=== PATIENT | female | born 1965 | race Asian ===

== ENCOUNTER 2017-04-28 14:54 | Observation (INO) | payer OTHER ==
[~2017-04-28] VITALS: Ht 162.6 cm; Wt 50.5 kg
--- NOTE | 2017-04-28 15:18 | EMERGENCY ROOM VISIT NOTE ---
History Report prepared by Sherman: Evan Lombardo Under the Supervision of: Dr. Ryan Turk M.D. 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 She notes feeling tightness in her chest since last night and into the morning. She currently rates her pain a 5/10 in severity. She was referred to the ED from her PCP. She notes frequent diaphoresis at night regardless of her chest pain. She has been taking nitroglycerin for the chest pain, but notes there have been little improvements with her symptoms. She denies any current palpitations, diarrhea, dysuria, shortness of breath, leg pain or swelling. She notes that she infrequently gets leg cramps and takes a calcium supplement. She has a history of acid reflux, but notes this pain is unrelated. She denies a history of diabetes, blood clots, cardiac problems, or recent surgeries. She has a family history of CAD. 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 She notes infrequent leg cramps Review of Systems See HPI for pertinent positives and negatives. A total of ten systems were reviewed and were otherwise negative. Past Medical & Surgical Medical Problems: (1) Acid reflux (2) Chest pain Family History Colon cancer FHx: coronary artery disease Myocardial infarction Social History Smoking Status: Never Smoker Smokeless Tobacco Use: No Alcohol Use: none Drug Use: none Marital Status: Housing Status: lives with significant other Current/Historical Medications Scheduled Famotidine (Pepcid), 40 MG PO BID Lisinopril (Lisinopril), 20 MG PO DAILY Omeprazole (Prilosec), 20 MG PO DAILY Allergies Coded Allergies: No Known Allergies (Unverified , 04/28/17) Physical Exam Vital Signs Date Time Temp Pulse Resp B/P (MAP) Pulse Ox O2 Delivery O2 Flow Rate FiO2 04/28/17 17:00 77 18 139/94 97 Room Air 04/28/17 16:26 82 04/28/17 15:30 100 Room Air 04/28/17 15:26 100 Room Air 04/28/17 14:55 36.8 93 18 145/99 97 Room Air Physical Exam GENERAL: Awake, alert, well-appearing, in no distress HENT: Normocephalic, atraumatic. Oropharynx unremarkable. EYES: Normal conjunctiva. Sclera non-icteric. NECK: Supple. No nuchal rigidity. FROM. No JVD. RESPIRATORY: Clear to auscultation. CARDIAC: Regular rate, normal rhythm. Extremities warm and well perfused. Pulses equal. ABDOMEN: Soft, non-distended. No tenderness to palpation. No rebound or guarding. No masses. RECTAL: Deferred. MUSCULOSKELETAL: Chest examination reveals no tenderness. The back is symmetrical on inspection without obvious abnormality. There is no CVA tenderness to palpation. No joint edema. LOWER EXTREMITIES: Calves are equal size bilaterally and non-tender. No edema. No discoloration. NEURO: Normal sensorium. No sensory or motor deficits noted. SKIN: No rash or jaundice noted. Medical Decision & Procedures ER Provider Diagnostic Interpretation: Radiology results as stated below per my review and radiologist interpretation: SINGLE VIEW CHEST CLINICAL HISTORY: Atypical chest pain. FINDINGS: An AP, portable, upright chest radiograph is obtained. No prior studies are available for comparison at the time of dictation. The examination is degraded by portable technique and patient rotation. The cardiomediastinal silhouette is unremarkable. The lungs and pleural spaces are clear. No pneumothorax is seen. The bony thorax is grossly intact. IMPRESSION: No active disease in the chest. Electronically signed by: Man James M.D. 04/28/2017 3:36 PM Dictated Date/Time: 04/28/2017 3:36 PM Laboratory Results 04/28/17 15:29 Red Blood Count 4.31, Mean Corpuscular Volume 94.7, Mean Corpuscular Hemoglobin 32.5, Mean Corpuscular Hemoglobin Concent 34.3, Mean Platelet Volume 10.7, Neutrophils (%) (Auto) 68.2, Lymphocytes (%) (Auto) 25.0, Monocytes (%) (Auto) 3.9, Eosinophils (%) (Auto) 2.2, Basophils (%) (Auto) 0.5, Neutrophils # (Auto) 4.05, Lymphocytes # (Auto) 1.48, Monocytes # (Auto) 0.23, Eosinophils # (Auto) 0.13, Basophils # (Auto) 0.03 04/28/17 15:29 Test 04/28/17 15:29 White Blood Count 5.93 K/uL (4.8-10.8) Red Blood Count 4.31 M/uL (4.2-5.4) Hemoglobin 14.0 g/dL (12.0-16.0) Hematocrit 40.8 % (37-47) Mean Corpuscular Volume 94.7 fL (80-100) Mean Corpuscular Hemoglobin 32.5 pg (25-34) Mean Corpuscular Hemoglobin Concent 34.3 g/dl (32-36) Platelet Count 174 K/uL (130-400) Mean Platelet Volume 10.7 fL (7.4-10.4) Neutrophils (%) (Auto) 68.2 % Lymphocytes (%) (Auto) 25.0 % Monocytes (%) (Auto) 3.9 % Eosinophils (%) (Auto) 2.2 % Basophils (%) (Auto) 0.5 % Neutrophils # (Auto) 4.05 K/uL (1.4-6.5) Lymphocytes # (Auto) 1.48 K/uL (1.2-3.4) Monocytes # (Auto) 0.23 K/uL (0.11-0.59) Eosinophils # (Auto) 0.13 K/uL (0-0.5) Basophils # (Auto) 0.03 K/uL (0-0.2) RDW Standard Deviation 42.5 fL (36.4-46.3) RDW Coefficient of Variation 12.4 % (11.5-14.5) Immature Granulocyte % (Auto) 0.2 % Immature Granulocyte # (Auto) 0.01 K/uL (0.00-0.02) Anion Gap 5.0 mmol/L (3-11) Est Creatinine Clear Calc Drug Dose 58.5 ml/min Estimated GFR () 79.5 Estimated GFR (Non- 68.6 BUN/Creatinine Ratio 10.2 (10-20) Calcium Level 8.8 mg/dl (8.5-10.1) Magnesium Level 2.2 mg/dl (1.8-2.4) Total Bilirubin 0.4 mg/dl (0.2-1) Direct Bilirubin < 0.1 mg/dl (0-0.2) Aspartate Amino Transf (AST/SGOT) 13 U/L (15-37) Alanine Aminotransferase (ALT/SGPT) 20 U/L (12-78) Alkaline Phosphatase 94 U/L (45-117) Troponin I < 0.015 ng/ml (0-0.045) Total Protein 7.4 gm/dl (6.4-8.2) Albumin 4.0 gm/dl (3.4-5.0) Lipase 172 U/L (73-393) Laboratory results reviewed by me ECG Indication: chest pain Rate (beats per minute): 84 Rhythm: normal sinus Findings: other (Normal intervals, T wave inversion in L2) Change: Repeat ECG: Normal sinus rhythm, 72 Findings: Normal axis, No acute ischemic changes. ED Course 1503: The patient was evaluated in room C3. A complete history and physical exam was performed. 1648: I spoke with Dr. Sullivan. We discussed the patients case. The patient will be evaluated by the [facility] for further management. Medical Decision I reviewed the patient's past medical history, medications, and the nursing notes as described above. Differential diagnoses: ACS, angina, PNA, bronchitis, arrhythmia, gastritis, peptic ulcer, and anxiety. The patient is a 51-year-old woman who presents to emergency department with episodes of intermittent chest pain that occur at night and resolved with nitroglycerin per history of present illness. On arrival the patient is asymptomatic, well-appearing, in no acute distress. EKG with T-wave inversion in V2 but otherwise no signs of acute ischemia. Trop negative. CXR negative. She does have a family member who has had cardiac disease in his early 60s. Thus , patients heart score would be 4, moderate risk. Admission for provocative testing is reasonable. Patient agreeable for admission. Case d/w [facility] hospitalist who will admit the patient for further ACS and likely stress test tomorrow. Blood Pressure Screening Patient's blood pressure: Elevated blood pressure refer to hospitalist Consults Time Called: 1644 Consulting Physician: Dr Sullivan, hospitalist Returned Call: [address] Sullivan. We discussed the patients case. The patient will be evaluated by the [facility] for further management. Impression Primary Impression: Substernal precordial chest pain Scribe Attestation The scribe's documentation has been prepared under my direction and personally reviewed by me in its entirety. I confirm that the note above accurately reflects all work, treatment, procedures, and medical decision making performed by me. Departure Information Dispostion Being Evaluated By Hospitalist Chris Mishra M.D. (PCP) Patient Instructions [facility]
--- NOTE | 2017-04-28 15:37 | DIAGNOSTIC IMAGING REPORT ---
SINGLE VIEW CHEST CLINICAL HISTORY: Atypical chest pain. FINDINGS: An AP, portable, upright chest radiograph is obtained. No prior studies are available for comparison at the time of dictation. The examination is degraded by portable technique and patient rotation. The cardiomediastinal silhouette is unremarkable. The lungs and pleural spaces are clear. No pneumothorax is seen. The bony thorax is grossly intact. IMPRESSION: No active disease in the chest. Electronically signed by: Man James M.D. 04/28/2017 3:36 PM Dictated Date/Time: 04/28/2017 3:36 PM
[2017-04-28 15:43] LABS: BASO % 0.5 %; BASO ABS # 0.03 K/uL (0-0.2); COMPLETE YES; EOS % 2.2 %; HEMATOCRIT 40.8 % (37-47); IG% 0.2 %; LYMPH ABS # 1.48 K/uL (1.2-3.4); MEAN CELL VOLUME 94.7 fL (80-100); MEAN CORPUSCULAR HEMOGLOBIN 32.5 pg (25-34); MEAN CORPUSCULAR HGB CONC 34.3 g/dl (32-36); MEAN PLATELET VOLUME 10.7 fL (7.4-10.4); MONO % 3.9 %; NEUT % 68.2 %; PLATELET COUNT 174 K/uL (130-400); RED BLOOD COUNT 4.31 M/uL (4.2-5.4); WHITE BLOOD COUNT 5.93 K/uL (4.8-10.8)
[2017-04-28 16:04] LABS: ALT/SGPT 20 U/L (12-78); AST/SGOT 13 U/L (15-37); BLOOD UREA NITROGEN 10 mg/dl (7-18); BUN/CREATININE RATIO 10.2 (10-20); CALCIUM 8.8 mg/dl (8.5-10.1); CARBON DIOXIDE 27 mmol/L (21-32); CHLORIDE 105 mmol/L (98-107); CREATININE 0.97 mg/dl (0.60-1.20); GLUCOSE 164 mg/dl (70-99); MAGNESIUM 2.2 mg/dl (1.8-2.4); POTASSIUM 3.6 mmol/L (3.5-5.1); SODIUM 137 mmol/L (136-145)
[2017-04-28 16:09] LABS: ALKALINE PHOSPHATASE 94 U/L (45-117)
[2017-04-28] MEDS ORDERED: MAGNESIUM HYDROXIDE SUSP 30 ML UDC PO PRN (17:30)
[2017-04-28] MEDS ORDERED: POLYETHYLENE (MIRALAX) 17 GM PACK PO PRN (17:30)
[2017-04-28] MEDS ORDERED: ONDANSETRON INJ 2 MG/ML 2 ML VIAL IV PRN (17:30)
[2017-04-28] MEDS ORDERED: ACETAMINOPHEN 325 MG TAB PO PRN (17:30)
[2017-04-28] MEDS ORDERED: ALUMINUM/MAGNESIUM/SIMETH (MAALOX MAX) 30 ML UDC PO PRN (17:30)
[2017-04-28] MEDS ORDERED: LSN20 PO (17:39)
[2017-04-28] MEDS ORDERED: FAMO40TA6 PO (17:46)
[2017-04-28] MEDS ORDERED: OMEP40CA41 PO (17:46)
--- NOTE | 2017-04-28 17:56 | History and Physical ---
History & Physical Date & Time of Service: Apr 28, 2017 at 17:43 Chief Complaint: Chest Pain Primary Care Physician: Chris Lewis M.D. History of Present Illness Source: patient, hospital records This is a 51 y/o female with a history of HTN and GERD who presented to the ED on 04/28 with intermittent chest pain x 2 weeks. The patient states that she has had a lot of stress with her family recently, and in the last 2 weeks she has had an intermittent chest tightness and retrosternal aching pain that typically occurs at nighttime. The pain occurred again last night and this morning her chest tightness persisted. She went to see her PCP who recommended she be evaluated in the ED. She describes her discomfort as a 4/10 aching pain. She was previously prescribed nitroglycerin which does help alleviate the pain. She denies any associated symptoms and denies any radiation of the pain. She was recently diagnosed with HTN and was to start lisinopril today, but she did not get to fill the prescription as she came to the ED instead. Currently, she states that all of her chest pain and tightness are gone. The patient denies fevers, chills, sweats, palpitations, claudication, cough, wheezing, shortness of breath, nausea, vomiting, abdominal pain, dysuria, hematuria, urinary retention, paralysis, weakness, numbness and tingling. Past Medical/Surgical History HTN GERD Family History Colon cancer Myocardial infarction Social History Smoking Status: Never Smoker Smokeless Tobacco Use: No Alcohol Use: none Drug Use: none Marital Status: Housing status: lives with significant other Occupational Status: unemployed Allergies Coded Allergies: No Known Allergies (Unverified , 04/28/17) Home Medications Scheduled Famotidine (Pepcid), 40 MG PO BID Lisinopril (Lisinopril), 20 MG PO DAILY Omeprazole (Prilosec), 20 MG PO DAILY Review of Systems Constitutional: No fever, No chills, No sweats Eyes: No worsening of vision, No eye pain, No diplopia ENT: No hearing loss, No nasal symptoms, No trouble swallowing Respiratory: No cough, No wheezing, No shortness of breath Cardiovascular: +Intermittent chest pain and tightness. No claudication, No palpitations Abdomen: No pain, No nausea, No vomiting Musculoskeletal: No joint pain, No muscle pain, No swelling Genitourinary - Female: No dysuria, No urinary retention, No hematuria Neurologic: No paralysis, No weakness, No numbness/tingling Integumentary: No rash, No itch, No color change Physical Exam Vital Signs Date Time Temp Pulse Resp B/P (MAP) Pulse Ox O2 Delivery O2 Flow Rate FiO2 04/28/17 17:00 77 18 139/94 97 Room Air 04/28/17 16:26 82 04/28/17 15:30 100 Room Air 04/28/17 15:26 100 Room Air 04/28/17 14:55 36.8 93 18 145/99 97 Room Air General appearance: Well-developed, well-nourished, no apparent distress Head: Normocephalic, atraumatic Eyes: Normal inspection, PERRL, EOMI ENT: Normal ENT inspection, hearing grossly normal, pharynx normal Neck: Supple, no JVD, trachea midline Respiratory/Chest: Lungs clear to auscultation, normal breath sounds, no respiratory distress Cardiovascular: Regular rate & rhythm, no gallop, no murmur Abdomen/GI: Normal bowel sounds, non-tender, soft Extremities/Musculoskeletal: Normal inspection, no calf tenderness, no pedal edema Neurological/Psych: Alert, normal mood/affect, oriented x 3 Skin: Normal color, warm/dry, no rash Diagnostics Laboratory Results Results Past 24 Hours Test 04/28/17 15:29 Range/Units White Blood Count 5.93 4.8-10.8 K/uL Red Blood Count 4.31 4.2-5.4 M/uL Hemoglobin 14.0 12.0-16.0 g/dL Hematocrit 40.8 37-47 % Mean Corpuscular Volume 94.7 80-100 fL Mean Corpuscular Hemoglobin 32.5 25-34 pg Mean Corpuscular Hemoglobin Concent 34.3 32-36 g/dl Platelet Count 174 130-400 K/uL Mean Platelet Volume 10.7 7.4-10.4 fL Neutrophils (%) (Auto) 68.2 % Lymphocytes (%) (Auto) 25.0 % Monocytes (%) (Auto) 3.9 % Eosinophils (%) (Auto) 2.2 % Basophils (%) (Auto) 0.5 % Neutrophils # (Auto) 4.05 1.4-6.5 K/uL Lymphocytes # (Auto) 1.48 1.2-3.4 K/uL Monocytes # (Auto) 0.23 0.11-0.59 K/uL Eosinophils # (Auto) 0.13 0-0.5 K/uL Basophils # (Auto) 0.03 0-0.2 K/uL RDW Standard Deviation 42.5 36.4-46.3 fL RDW Coefficient of Variation 12.4 11.5-14.5 % Immature Granulocyte % (Auto) 0.2 % Immature Granulocyte # (Auto) 0.01 0.00-0.02 K/uL Sodium Level 137 136-145 mmol/L Potassium Level 3.6 3.5-5.1 mmol/L Chloride Level 105 98-107 mmol/L Carbon Dioxide Level 27 21-32 mmol/L Anion Gap 5.0 3-11 mmol/L Blood Urea Nitrogen 10 7-18 mg/dl Creatinine 0.97 0.60-1.20 mg/dl Est Creatinine Clear Calc Drug Dose 58.5 ml/min Estimated GFR () 79.5 Estimated GFR (Non- 68.6 BUN/Creatinine Ratio 10.2 10-20 Random Glucose 164 70-99 mg/dl Calcium Level 8.8 8.5-10.1 mg/dl Magnesium Level 2.2 1.8-2.4 mg/dl Total Bilirubin 0.4 0.2-1 mg/dl Direct Bilirubin < 0.1 0-0.2 mg/dl Aspartate Amino Transf (AST/SGOT) 13 15-37 U/L Alanine Aminotransferase (ALT/SGPT) 20 12-78 U/L Alkaline Phosphatase 94 45-117 U/L Troponin I < 0.015 0-0.045 ng/ml Total Protein 7.4 6.4-8.2 gm/dl Albumin 4.0 3.4-5.0 gm/dl Lipase 172 73-393 U/L Diagnostic Radiology Reviewed the following studies and agree with interpretation as follows: SINGLE VIEW CHEST CLINICAL HISTORY: Atypical chest pain. FINDINGS: An AP, portable, upright chest radiograph is obtained. No prior studies are available for comparison at the time of dictation. The examination is degraded by portable technique and patient rotation. The cardiomediastinal silhouette is unremarkable. The lungs and pleural spaces are clear. No pneumothorax is seen. The bony thorax is grossly intact. IMPRESSION: No active disease in the chest. EKG Reviewed EKG and agree with interpretation as follows: 73 bpm, NSR Impression Assessment and Plan 51 y/o female with a history of HTN and GERD who presented to the ED on 04/28 with intermittent chest pain x 2 weeks. Pt arrived afebrile, VSS. EKG did not show any acute ischemic changes. CXR no acute disease. Troponin negative. BSG 164. Labs otherwise grossly unremarkable. Chest pain, ACS r/o -Admit to telemetry for observation -Trend cardiac enzymes q8h x 3. First troponin negative. -Stress echo in am if negative -NPO after midnight -EKG q am and prn chest pain -Check fasting lipid panel -Elevated BSG, will check HgbA1c HTN--new diagnosis, was prescribed lisinopril today but has not taken yet -Continue lisinopril 20 mg PO qd GERD -Continue Pepcid. Convert Prilosec to Protonix GI prophylaxis -Maalox Max 15 mL PO q4h prn dyspepsia -Milk of magnesia 30 mL PO q6h prn constipation -Miralax 17 gm PO qd prn constipation -Zofran 4 mg IV q6h prn nausea DVT prophylaxis -Enoxaparin 40 mg SC q24h -JOSE MARIA restrepo and [place] Code Status -Level I, FULL RESUSCITATION STATUS Level of Care Telemetry Resuscitation Status FULL RESUSCITATION VTE Prophylaxis VTE Risk Assessment Done? Y/N: Yes Risk Level: Moderate Given or contraindicated: Enoxaparin (Lovenox)SQ, T.E.D. Stockings, SCD's Reviewed: Pt Seen/Exam by Me History Physician Curriculum Counselor Supervision Note: I interviewed and examined the patient. Discussed with LINSEY Junior and agree with findings and plan as documented in the note. Any exceptions or clarifications are listed here: Pt reports several episodes of chest tightness and pain over the last 2-3 weeks. Pain is substernal, nonradiating, comes on at rest, mostly at nighttime, will last until she takes a SLNTG ( is MD and prescribed for her). She then sometimes gets a chest tightness afterwards that will last a few hours. No associated symptoms. BPs have been elevated lately. Currently undergoing some personal stressors. No previous cardiac history. Had some more heartburn type symptoms a few weeks back that resolved with taking PPI and H2 syed. This pain is different from that sensation of GERD. No hematemesis, no hematochezia or melena, no abd pain. Has had low appetite and lost 7 lbs due to stress in the last few weeks. Vitals reviewed\NAD, very pleasant, AAOx3 Thin Anicteric sclerae RRR no mgr, no TTP over chest CTAB no wcr Abd +BS soft NT ND Ext no edema, 2+ DP pulses Skin no rashes ECG normal CXR normal and personally reviewed by me Labs normal 51 yo female with h/o GERD, here with atypical CP. If troponins neg x 3, will perform Stress ECHO. If stress negative, suggest could be GI-related due to GERD or esophageal spasm given it is relieved with NTG. Would suggest outpt GI referral at that point. Documented By: Elaina Olea
[2017-04-28 19:22] VITALS: BP 140/91; PULSE 64; TEMP 36.9; O2SAT 98; Ht 162.6 cm; Wt 50.5 kg
[2017-04-28 20:10] LABS: PROTHROMBIN TIME (PATIENT) 10.6 SECONDS (9.0-12.0)
[2017-04-28] MEDS ORDERED: ZOLPIDEM TARTRATE 5 MG TAB PO PRN (20:15)
[2017-04-28] MEDS ORDERED: ENOXAPARIN 40 MG/0.4 ML SYR SC SCH (21:00)
[2017-04-28] MEDS: FAMOTIDINE 20 MG TAB PO SCH (21:00)
[2017-04-28] MEDS ORDERED: INFLUENZA ADMINISTRATION CHARGE ONE (22:00)
[2017-04-28] MEDS ORDERED: INFLUENZA VIRUS QUAD VACCINE 0.5 ML SYR IM. ONE (22:00)
[2017-04-28] MEDS ORDERED: IV FLUIDS COMPLETED PRN (22:15)
[2017-04-29 00:31] VITALS: BP 115/77; PULSE 66; TEMP 37.1; O2SAT 97
[2017-04-29 03:05] VITALS: BP 132/82; PULSE 60; TEMP 36.5; O2SAT 100
[2017-04-29 07:12] LABS: HEMATOCRIT 41.8 % (37-47); MEAN CORPUSCULAR HEMOGLOBIN 33.6 pg (25-34); MEAN CORPUSCULAR HGB CONC 35.4 g/dl (32-36); MEAN PLATELET VOLUME 10.6 fL (7.4-10.4); PLATELET COUNT 168 K/uL (130-400); WHITE BLOOD COUNT 5.24 K/uL (4.8-10.8)
[2017-04-29 07:31] LABS: BUN/CREATININE RATIO 26.6 (10-20); CALCIUM 8.8 mg/dl (8.5-10.1); CARBON DIOXIDE 25 mmol/L (21-32); CHLORIDE 107 mmol/L (98-107); GLUCOSE 97 mg/dl (70-99); POTASSIUM 3.6 mmol/L (3.5-5.1); SODIUM 138 mmol/L (136-145)
[2017-04-29 07:34] LABS: BLOOD UREA NITROGEN 16 mg/dl (7-18)
[2017-04-29 07:35] LABS: CHOLESTEROL 175 mg/dl (0-200); CHOLESTEROL/HDL RATIO 2.7; CKMB/CK RATIO 0.5 (0-3.0); HDL CHOLESTEROL 65 mg/dl; LDL CHOLESTEROL CALCULATED 94 mg/dl; TRIGLYCERIDES 82 mg/dl (0-150); VERY LOW DENSITY LIPOPROT CALC 16 mg/dl
[2017-04-29 08:05] VITALS: BP 133/85; PULSE 72; TEMP 36.8; O2SAT 96
[2017-04-29] MEDS: FAMOTIDINE 20 MG TAB PO SCH (08:15)
[2017-04-29 08:35] LABS: ESTIMATED AVERAGE GLUCOSE 108 mg/dl; HA1C FLAG Normal (Normal)
[2017-04-29] MEDS ORDERED: PANTOprazole SOD 40 MG TAB PO SCH (09:00)
[2017-04-29] MEDS ORDERED: LISINOPRIL 10 MG TAB PO SCH (09:00)
[2017-04-29] MEDS ORDERED: LISINOPRIL 20 MG TAB PO SCH (09:00)
[2017-04-29] MEDS ORDERED: LSN10 PO (11:23)
[2017-04-29] MEDS ORDERED: LISI-461 PO (11:24)
--- NOTE | 2017-04-29 11:54 | Discharge Summary ---
Discharge Summary Date of Service Apr 29, 2017. Discharge Summary Admission Date: Apr 28, 2017 at 17:42 Discharge Date: Apr 29, 2017 Discharge Disposition: Home Principal Diagnosis: Chest pain Problems/Secondary Diagnoses: HTN GERD Procedures: SINGLE VIEW CHEST CLINICAL HISTORY: Atypical chest pain. FINDINGS: An AP, portable, upright chest radiograph is obtained. No prior studies are available for comparison at the time of dictation. The examination is degraded by portable technique and patient rotation. The cardiomediastinal silhouette is unremarkable. The lungs and pleural spaces are clear. No pneumothorax is seen. The bony thorax is grossly intact. IMPRESSION: No active disease in the chest. Electronically signed by: Man James M.D. 04/28/2017 3:36 PM Dictated Date/Time: 04/28/2017 3:36 PM The status of this report is Signed. Draft = Not yet reviewed or approved by Radiologist. Signed = Reviewed and approved by Radiologist. Stress ECHO Medication Reconciliation Changed Medications: Lisinopril (Lisinopril) 10 Mg Tab 10 MG PO DAILY for 30 Days, #30 TAB (Changed from: Lisinopril 20 Mg Tab 20 Mg PO DAILY) Continued Medications: Famotidine (Pepcid) 40 Mg Tab 40 MG PO BID, TAB Omeprazole (Prilosec) 40 Mg Cap 20 MG PO DAILY, CAP Discharge Exam Review of Systems: Constitutional: No fever, No chills, No sweats, No weakness, No fatigue Respiratory: No cough, No shortness of breath, No hemoptysis Cardiovascular: No chest pain, No edema, No palpitations Abdomen: No pain, No nausea, No vomiting, No diarrhea, No constipation Musculoskeletal: No joint pain, No muscle pain, No swelling, No calf pain Genitourinary - Female: No dysuria, No hematuria Neurologic: No weakness, No numbness/tingling Psychiatric: No depression symptoms, No anxiety Endocrine: No fatigue Hematologic / Lymphatic: No abnormal bleeding/bruising, No swollen lymph nodes Integumentary: No rash, No itch, No new/changing skin lesions Physical Exam: General Appearance: no apparent distress Eyes: normal inspection, PERRL ENT: hearing grossly normal Neck: supple Respiratory/Chest: lungs clear, no respiratory distress, no accessory muscle use Cardiovascular: regular rate, rhythm Abdomen / GI: normal bowel sounds, non tender, soft Extremities: no calf tenderness, no pedal edema Neurologic/Psychiatric: alert, normal mood/affect, oriented x 3 Skin: normal color, warm/dry, no rash Hospital Course Admission H&P: This is a 51 y/o female with a history of HTN and GERD who presented to the ED on 04/28 with intermittent chest pain x 2 weeks. The patient states that she has had a lot of stress with her family recently, and in the last 2 weeks she has had an intermittent chest tightness and retrosternal aching pain that typically occurs at nighttime. The pain occurred again last night and this morning her chest tightness persisted. She went to see her PCP who recommended she be evaluated in the ED. She describes her discomfort as a 4/10 aching pain. She was previously prescribed nitroglycerin which does help alleviate the pain. She denies any associated symptoms and denies any radiation of the pain. She was recently diagnosed with HTN and was to start lisinopril today, but she did not get to fill the prescription as she came to the ED instead. Currently, she states that all of her chest pain and tightness are gone. The patient denies fevers, chills, sweats, palpitations, claudication, cough, wheezing, shortness of breath, nausea, vomiting, abdominal pain, dysuria, hematuria, urinary retention, paralysis, weakness, numbness and tingling. Physical Exam Vital Signs Date Time Temp Pulse Resp B/P (MAP) Pulse Ox O2 Delivery O2 Flow Rate FiO2 04/28/17 17:00 77 18 139/94 97 Room Air 04/28/17 16:26 82 04/28/17 15:30 100 Room Air 04/28/17 15:26 100 Room Air 04/28/17 14:55 36.8 93 18 145/99 97 Room Air General appearance: Well-developed, well-nourished, no apparent distress Head: Normocephalic, atraumatic Eyes: Normal inspection, PERRL, EOMI ENT: Normal ENT inspection, hearing grossly normal, pharynx normal Neck: Supple, no JVD, trachea midline Respiratory/Chest: Lungs clear to auscultation, normal breath sounds, no respiratory distress Cardiovascular: Regular rate & rhythm, no gallop, no murmur Abdomen/GI: Normal bowel sounds, non-tender, soft Extremities/Musculoskeletal: Normal inspection, no calf tenderness, no pedal edema Neurological/Psych: Alert, normal mood/affect, oriented x 3 Skin: Normal color, warm/dry, no rash Hospital Course: 51 y/o female with a history of HTN and GERD who presented to the ED on 04/28 with intermittent chest pain x 2 weeks. Pt arrived afebrile, VSS. EKG did not show any acute ischemic changes. CXR no acute disease. Troponin negative. BSG 164. Labs otherwise grossly unremarkable. Chest pain, ACS r/o: - Admit to telemetry for cardiac monitoring- no acute events - Trended cardiac enzymes- negative - EKG w/out acute ischemic changes - Stress ECHO- unremarkable for ischemic changes - Lipid panel and HgbA1C- WNL - Recommend outpatient f/u w/ PCP for continued workup and possible GI referral HTN: Lisinopril 10 mg PO qd GERD: Continue Pepcid and Prilosec DVT prophylaxis: Enoxaparin 40 mg SC q24h Code Status: Level I, FULL RESUSCITATION STATUS Dispo: Discharge to home Total Time Spent: Greater than 30 minutes This includes examination of the patient, discharge planning, medication reconciliation, and communication with other providers. Discharge Instructions Please refer to the electronic Patient Visit Report (Discharge Instructions) for additional information. Follow-Up Please follow-up with your PCP within 5-7 days Please follow-up/keep all of your subspecialty appointments Additional Copies To Chris Lewis M.D. Reviewed: Pt Seen/Exam by Me History Physician Respiratory Therapy Aide Supervision Note: I interviewed and examined the patient. Discussed with LINSEY Garcia and agree with findings and plan as documented in the note. Any exceptions or clarifications are listed here: Pt reports several episodes of chest tightness and pain over the last 2-3 weeks. Pain is substernal, nonradiating, comes on at rest, mostly at nighttime, will last until she takes a SLNTG ( is MD and prescribed for her). She then sometimes gets a chest tightness afterwards that will last a few hours. No associated symptoms. BPs have been elevated lately. Currently undergoing some personal stressors. No previous cardiac history. Had some more heartburn type symptoms a few weeks back that resolved with taking PPI and H2 syed. This pain is different from that sensation of GERD. No hematemesis, no hematochezia or melena, no abd pain. Has had low appetite and lost 7 lbs due to stress in the last few weeks. Pt doing very well on day of discharge; no recurrence of chest pain or tightness since admission. Had normal Stress ECHO today. Feeling good and ready to get out of here. No events on tele. Troponins neg x 3 Vitals reviewed NAD, thin, pleasant, AAOx3 RRR no mgr CTAB no wcr Ext no edema 51 yo female with h/o GERD, here with atypical CP. Stress ECHO negative for ischemia-> suggest could be GI-related due to GERD or esophageal spasm given it is relieved with NTG. Would suggest outpt GI referral after discharge today -continue lisinopril at 10mg daily f/u PCP within 1 week Documented By: Elaina Olea
--- NOTE | 2017-04-29 11:55 | Discharge Instructions ---
Discharge Instructions Date of Service Apr 29, 2017. Admission Reason for Admission: Chest Pain Discharge Discharge Diagnosis / Problem: Chest pain likely related to GERD Discharge Goals Goal(s): Decrease discomfort, Learn about illness, Diagnostic testing, Therapeutic intervention, Prevent Disease Progression Activity Recommendations Activity Limitations: resume your previous activity . Instructions / Follow-Up Instructions / Follow-Up An acute cardiac event was ruled-out through cardiac monitoring, cardiac enzymes , and a stress test. It is recommended you follow-up with your PCP for continued workup. A GI consultation may be warranted in the future for further workup- this can be discussed with your PCP. Blood pressure medication: Lisinopril 10 mg daily GERD: Continue Prilosec and Pepcid FOLLOW-UPS: Please follow-up with your PCP within 5-7 days Please follow-up/keep all of your subspecialty appointments Home Care: * If you are having chest pain, call 911 for an ambulance. Do NOT drive yourself to the hospital. * Ask your family members to learn CPR. * Learn to take your own blood pressure and pulse. Keep a record of your results. Ask your doctor when you should seek emergency medical attention. He or she will tell you which blood pressure reading is dangerous. Lifestyle Changes: * Maintain a healthy weight. Get help to lose any extra pounds. * Cut back on salt. * Limit canned, dried, packaged, and fast foods. * Don't add salt to your food. * Season foods with herbs instead of salt when you cook. * Break the smoking habit. Enroll in a stop-smoking program to improve your chances of success. * Limit fatty foods. * Ask your doctor about having your lipid levels checked regularly. * Build up your activity according to your doctor's recommendation. * Ask your doctor when it's okay to resume sexual activity. * Try to manage stress. Follow Up: It is important for you to keep your follow up appointments with your medical provider. Current Hospital Diet Patient's current hospital diet: AHA Diet (Heart Healthy) Discharge Diet Recommended Diet: AHA Diet (Heart Healthy) Pending Studies Studies pending at discharge: no Laboratory Results Hemoglobin A1c Test 04/29/17 06:59 Range/Units Estimated Average Glucose 108 mg/dl Hemoglobin A1c 5.4 4.5-5.6 % Lipid Panel Test 04/29/17 06:59 Range/Units Triglycerides Level 82 0-150 mg/dl Cholesterol Level 175 0-200 mg/dl HDL Cholesterol 65 mg/dl Cholesterol/HDL Ratio 2.7 LDL Cholesterol, Calculated 94 mg/dl Medical Emergencies . Who to Call and When: Medical Emergencies: If at any time you feel your situation is an emergency, please call 911 immediately. Call 911 immediately or go to your nearest Emergency Room if you experience any of the following: Warning Signs and Symptoms of a Heart Attack * Chest pain that is not relieved by medication * Shortness of breath . Non-Emergent Contact Non-Emergency issues call your: Primary Care Provider Call Non-Emergent contact if: your pain is not controlled, your pain is worsening, your pain is unusual for you, your pain is concerning you, you have any medication questions . . "Provider Documentation" section prepared by Debbie Garcia. . AMI Core Measures Reason no ASA as I/P: Treatment not indicated Reason no ASA at D/C: Treatment not indicated Reason no statin as I/P: Treatment not indicated Reason no statin at D/C: Treatment not indicated VTE Core Measure Inpt VTE Proph given/why not?: Enoxaparin (Lovenox)SQ, T.E.D. Stockings, SCD's
[2017-04-29 12:09] VITALS: BP 133/85; PULSE 72; TEMP 36.8; O2SAT 96
--- NOTE | 2017-04-29 15:17 | EXERCISE STRESS ECHO ---
*NOTICE TO RECEIVING [employer] This information is strictly Confidential and protected under [place] law. [place] law prohibits you from making any further disclosure of this information unless further disclosure is expressly permitted by the written consent of the person to whom it pertains or is authorized by law. A general authorization for the release of medical or other information is not sufficient for this purpose. Hospital accepts no responsibility if the information is made available to any other person, INCLUDING THE PATIENT. Interpretation Summary * Name: MELECIO ZHONG Study Date: 04/29/2017 08:57 AM BP: 110/76 mmHg * Patient Location: C.2E\S\E201\S\1 HR: 61 * : 1965 (M/d/yyyy) Gender: Female Height: 64 in * Age: 51 yrs Ethnicity: Weight: 116 lb * Ordering Physician: Yarely Perkins * Referring Physician: Chris Lewis * Performed By: Thelma Gonzalez RCS * * Reason For Study: CHEST PAIN * BSA: 1.6 m2 * -- Conclusions -- * Stress Echo: * 1. Negative stress echo for ischemia at 100 % MPHR. * 2. Negative exercise ECG for ischemia at 100 % MPHR. * 3. Appropriate blood pressure response to exercise. * 4. No arrhythmia. * 5. Study terminated due to fatigue. No chest pain reported. * 6. Good exercise tolerance. * Echo: * 1. Normal left ventricular size and systolic function. EF 60-65%. No regional wall motion abnormalities. No left ventricular hypertrophy. No significant diastolic dysfunction. * 2. No significant valvular abnormalities. Procedure Details * ECHOEX, CPT #[id number] * ECHO COLOR FLOW, CPT #[id number] * ECHO DOPPLER, CPT #[id number] Left Ventricle * The left ventricle is normal in size. * There is normal left ventricular wall thickness. * Left ventricular systolic function is normal. * The left ventricular ejection fraction increases normally with stress. The left ventricular end-systolic cavity size reduces post-stress (normal response). The left ventricular wall motion with stress is normal. * Resting wall motion: Normal. Stress wall motion: Appropriate increase in Left ventricular systolic function and decrease in cavity size. No stress induced segmental wall motion abnormalities. * No regional wall motion abnormalities noted. Right Ventricle * The right ventricle is normal in size and function. Atria * The left atrial size is normal. * Right atrial size is normal. * There is no evidence of atrial septal defect, but resolution does not allow assessment for a patent foramen ovale. Mitral Valve * The mitral valve leaflets appear normal. There is no evidence of stenosis, fluttering, or prolapse. * There is no mitral regurgitation noted. Tricuspid Valve * The tricuspid valve is not well visualized, but is grossly normal. * There is no tricuspid stenosis. * Significant tricuspid regurgitation is absent. Aortic Valve * The aortic valve opens well. * No hemodynamically significant valvular aortic stenosis. * No aortic regurgitation is present. Pulmonic Valve * The pulmonary valve is inadequately visualized, but the Doppler data is adequate for interpretation. * There is no significant pulmonary regurgitation. Great Vessels * The aortic root is normal size. * Normal pulmonary venous flow pattern. Normal IVC size and inspiratory collapse. Pericardium * There is no pericardial effusion. Stress Parameters * NSR at 67 bpm. * Stress ECG: No ST changes. No arrhythmias. * No arrhythmia were noted with stress. * The stress portion of this study was personally supervised by the undersigned interpreting physician. * Rest heart rate was '61' BPM. * Rest blood pressure was '110/76' * Maximum heart rate achieved was 171 bpm. * Maximum heart rate was 100 % of maximum age-predicted heart rate. * Maximum blood pressure was '132/81' * Total exercise time was '10:25' * Maximum exercise MET level achieved was '12.40' METS * Maximum treadmill speed was '4.20' miles per hour. * Maximum treadmill elevation was '16.00'% grade. * Normal blood pressure response to exercise. * Exercise was stopped due to fatigue. MMode 2D Measurements and Calculations IVSd 0.88 cm IVSs 1.3 cm LVIDd 4.0 cm LVIDs 2.4 cm LVPWd 0.84 cm LVPWs 0.86 cm IVS/LVPW 1.0 FS 39.9 % EDV(Teich) 68.7 ml ESV(Teich) 19.9 ml EF(Teich) 71.1 % EDV(cubed) 62.5 ml ESV(cubed) 13.6 ml EF(cubed) 78.3 % % IVS thick 45.9 % % LVPW thick 1.6 % LV mass(C)d 102.3 grams LV mass(C)dI 65.9 grams/m\S\2 LV mass(C)s 66.7 grams LV mass(C)sI 43.0 grams/m\S\2 SV(Teich) 48.8 ml SI(Teich) 31.5 ml/m\S\2 SV(cubed) 48.9 ml SI(cubed) 31.5 ml/m\S\2 Ao root diam 2.6 cm Ao root area 5.5 cm\S\2 LA dimension 2.0 cm LA/Ao 0.75 LVOT diam 2.0 cm LVOT area 3.2 cm\S\2 LVAd ap4 19.8 cm\S\2 LVLd ap4 6.4 cm EDV(MOD-sp4) 50.9 ml EDV(sp4-el) 52.0 ml LVAs ap4 11.2 cm\S\2 LVLs ap4 5.2 cm ESV(MOD-sp4) 21.5 ml ESV(sp4-el) 20.4 ml EF(MOD-sp4) 57.9 % EF(sp4-el) 60.8 % LVAd ap2 17.3 cm\S\2 LVLd ap2 6.3 cm EDV(MOD-sp2) 39.8 ml EDV(sp2-el) 40.3 ml LVAs ap2 8.9 cm\S\2 LVLs ap2 4.8 cm ESV(MOD-sp2) 14.4 ml ESV(sp2-el) 14.1 ml EF(MOD-sp2) 63.9 % EF(sp2-el) 65.1 % LVLd %diff -1.35 % EDV(MOD-bp) 45.1 ml LVLs %diff -8.90 % ESV(MOD-bp) 17.9 ml EF(MOD-bp) 60.2 % SV(MOD-sp4) 29.5 ml SI(MOD-sp4) 19.0 ml/m\S\2 SV(MOD-sp2) 25.5 ml SI(MOD-sp2) 16.4 ml/m\S\2 SV(MOD-bp) 27.2 ml SI(MOD-bp) 17.5 ml/m\S\2 SV(sp4-el) 31.6 ml SI(sp4-el) 20.4 ml/m\S\2 SV(sp2-el) 26.2 ml SI(sp2-el) 16.9 ml/m\S\2 Doppler Measurements and Calculations MV E max charisse 78.2 cm/sec MV A max charisse 58.2 cm/sec MV E/A 1.3 MV P1/2t max charisse 79.4 cm/sec MV P1/2t 76.8 msec MVA(P1/2t) 2.9 cm\S\2 MV dec slope 302.8 cm/sec\S\2 MV dec time 0.21 sec Ao V2 max 103.5 cm/sec Ao max PG 4.3 mmHg Ao max PG (full) 2.1 mmHg KONRAD(V,A) 2.3 cm\S\2 KONRAD(V,D) 2.3 cm\S\2 LV V1 max PG 2.2 mmHg LV V1 max 74.4 cm/sec PA V2 max 71.6 cm/sec PA max PG 2.1 mmHg RAP systole 3.0 mmHg
== END 2017-04-29 12:17 | disposition home or self-care (01) ==
LOC: C.EDB 14:55 → C.2E 17:42 → ENRESERV 18:31
PROVIDERS: ADMIT Family Medicine; ATTEND Family Medicine
DX: R07.89 Other chest pain (principal); K21.9 Gastro-esophageal reflux disease without esophagitis; Z80.0 Family history of malignant neoplasm of digestive organs; Z82.49 Family history of ischemic heart disease and other diseases of the circulatory system